=== PATIENT | female | born 1980 | race Caucasian/White ===

== ENCOUNTER 2017-03-15 18:50 | Emergency (ER) | payer BC, MEDICARE ==
[~2017-03-15 18:50] MED LIST: ISOVUE-370 76%-LOCM 1 ML ONE
[2017-03-15] MEDS ORDERED: Acetaminophen 500 MG TAB ONE ×2 (19:54→19:58)
[2017-03-15 19:56] LABS: #Eosinphils 0.1 thou/uL (0.0-0.7); #Lymphocytes 0.7 thou/uL (1.20-3.40); #Monocytes 0.6 thou/uL (0.11-0.59); %Basophils 0.2 % (0.0-1.0); %Eosinophils 1.8 % (0.0-10.0); %Lymphocytes 16.3 % (21.0-51.0); %Monocytes 13.9 % (0.0-10.0); Hematocrit 38.5 % (36.0-47.0); Mean Platelet Volume 7.5 fL (7.4-10.4); Red Blood Cell (RBC) Count 3.91 mill/uL (4.20-5.40); White Blood Cell (WBC) Count 4.4 thou/uL (4.8-10.8)
[2017-03-15 20:11] LABS: Bilirubin Negative (Negative); Blood, Urine Negative (Negative); Glucose, Urine (Dipstick) Negative (Negative); Ketone, Urine 40 mg/dL (Negative); Nitrite Negative (Negative); Protein, Urine (Dipstick) Trace mg/dL (Neg-Trace); Urobilinogen 0.2 mg/dL (0.2-1.0)
[2017-03-15 20:11] LABS: Lactic Acid - Sepsis 1.2 mmol/L (0.5-2.2)
[2017-03-15 20:13] LABS: Bacteria/HPF None Seen HPF (None Seen); Hyaline Casts/LPF 0-3 HYALINE CAST LPF (0-3 Hyaline); RBC/HPF 0-3 HPF (0-3); Squamous Epithelial 0-3 HPF (0-3)
[2017-03-15 20:15] LABS: ALT (SGPT) 14 U/L (8-55); AST (SGOT) 25 U/L (5-34); Alkaline Phosphatase 80 U/L (40-150); Anion Gap 16 mmol/L (10-20); BUN (Urea Nitrogen) 9 mg/dL (7.0-18.7); Bilirubin, Total 0.8 mg/dL (0.2-1.2); Calc. Creatinine Clearance 0 mL/min (70-130); Calcium 9.1 mg/dL (7.8-10.44); Carbon Dioxide 25 mmol/L (22-29); Chloride 102 mmol/L (98-107); Estimated GFR-MDRD 64; Globulin 3.2 g/dL (2.4-3.5); Protein, Total 7.7 g/dL (6.0-8.3)
[2017-03-15 20:32] LABS: Magnesium 1.7 mg/dL (1.6-2.6)
[2017-03-15 20:37] LABS: Troponin I Less than 0.010 ng/mL (< 0.028)
[2017-03-15] MEDS ORDERED: Piperacillin/Tazobactam 3.375 GM in Sodium Chloride 0.9% 100 ML IVPB SCH (20:45)
--- NOTE | 2017-03-15 20:46 | RAD ---
CHEST ONE VIEW 03/15/17 HISTORY: Cough. COMPARISON: 08/27/15 FINDINGS: The cardiac silhouette is magnified by projection. Pulmonary vasculature is unremarkable. Mediastinum is midline. There is no lobar consolidation or evidence of pneumothorax. IMPRESSION: No active cardiopulmonary abnormalities are demonstrated. POS: [facility]
--- NOTE | 2017-03-15 21:46 | CT ---
CT ABDOMEN AND PELVIS WITH IV CONTRAST 03/15/17 HISTORY: Abdomen pain. COMPARISON: 02/06/14 FINDINGS: The lung bases are clear. Calcified granulomata within the spleen are consistent with healed granulom atous disease. The liver, kidneys, adrenal glands and pancreas have a normal CT appearance. No enlarg ed lymph nodes or free fluid are apparent. Pelvis is partially obscured by bilateral hip prosthesis. Ligation clips are present at each adnexa. Urinary bladder shows no focal abnormalities. IMPRESSION: No significant abnormalities are demonstrated. POS: [facility]
[2017-03-15] MEDS ORDERED: Ibuprofen 800 MG TAB ONE (21:53)
[2017-03-15] MEDS ORDERED: Potassium Chloride 20 MEQ TAB ONE (23:33)
--- NOTE | 2017-04-22 11:22 | EKG ---
Test Reason : SEPSIS ALERT Blood Pressure : / mmHG Vent. Rate : 107 BPM Atrial Rate : 107 BPM P-R Int : 122 ms QRS Dur : 074 ms QT Int : 300 ms P-R-T Axes : 048 -09 -67 degrees QTc Int : 400 ms Sinus tachycardia T wave abnormality, consider inferolateral ischemia Abnormal ECG Confirmed by LINCOLN MELGAR M.D. ([id number]), video tape editor TANVI ZAVALA ([id number]) on 04/22/2017 11:21:54 AM Referred By: Confirmed By:LINCOLN MELGAR M.D.
== END 2017-03-15 23:43 | disposition home or self-care (01) ==
LOC: ERS 18:50
DX: J10.1 Influenza due to other identified influenza virus with other respiratory manifestations (principal); E87.6 Hypokalemia; N39.0 Urinary tract infection, site not specified; I10 Essential (primary) hypertension
CPT/HCPCS: 36415; 71010; 74177; 80053; 81003; 81015; 82553; 83605; 83690; 83735; 84484; 85025; 87040; 87086; 93005; 93010; 96361; 96365; J2543; J7050

== ENCOUNTER 2018-04-05 15:56 | Emergency (ER) | payer BC, MEDICARE ==
[2018-04-05] MEDS ORDERED: Ketorolac Tromethamine 30 MG/ML VIAL ONE (16:28)
--- NOTE | 2018-04-05 16:58 | RAD ---
PORTABLE SUPINE AP PELVIS: History: Fall with injury to pelvis. FINDINGS: There are bilateral hip prostheses. The components appear in adequate position and alignment. No acut e fracture identified. IMPRESSION: No evidence of acute fracture. POS: [facility]
--- NOTE | 2018-04-05 16:59 | RAD ---
LEFT KNEE FOUR VIEWS: History: Fall from horse with injury to left knee. FINDINGS: No evidence of fracture. No evidence of joint effusion. No degenerative change or other osseous abnor mality. IMPRESSION: No acute findings. POS: [facility]
== END 2018-04-05 17:07 | disposition home or self-care (01) ==
LOC: ERS 15:56
DX: S76.012A Strain of muscle, fascia and tendon of left hip, initial encounter (principal); S86.912A Strain of unspecified muscle(s) and tendon(s) at lower leg level, left leg, initial encounter; I10 Essential (primary) hypertension; Z96.643 Presence of artificial hip joint, bilateral; V80.010A Animal-rider injured by fall from or being thrown from horse in noncollision accident, initial encounter
CPT/HCPCS: 72170; 96372; J1885

== ENCOUNTER 2018-06-19 20:08 | Emergency (ER) | payer BC, MEDICARE ==
[2018-06-19 21:23] LABS: #Basophils 0.1 thou/uL (0.0-0.2); #Eosinphils 0.2 thou/uL (0.0-0.7); #Lymphocytes 1.3 thou/uL (1.20-3.40); #Monocytes 0.9 thou/uL (0.11-0.59); #Neutrophils 3.9 thou/uL (1.40-6.50); %Basophils 1.1 % (0.0-1.0); %Eosinophils 3.3 % (0.0-10.0); %Lymphocytes 20.6 % (21.0-51.0); %Monocytes 14.3 % (0.0-10.0); %Neutrophils 60.7 % (42.0-75.0); Hemoglobin 11.3 g/dL (12.0-16.0); Mean Corpuscular HGB CONC 32.8 g/dL (32.0-36.0); Mean Corpuscular Hemoglobin 31.5 pg (27.0-31.0); Mean Corpuscular Volume 96.1 fL (78.0-98.0); Mean Platelet Volume 7.1 fL (7.4-10.4); Platelet Count 167 thou/uL (130-400); RBC Distribution Width 17.6 % (11.5-14.5); Red Blood Cell (RBC) Count 3.59 mill/uL (4.20-5.40); White Blood Cell (WBC) Count 6.5 thou/uL (4.8-10.8)
--- NOTE | 2018-06-19 21:42 | RAD ---
THREE VIEWS RIGHT SHOULDER 06/19/18 HISTORY: Recent right shoulder surgery. Pain. AP internally, externally and scapular Y-views right shoulder obtained. Three views right shoulder demonstrates a right shoulder arthroplasty. The humeral component is in good position. No evidence of definite fracture or loosening seen. The right clavicle and scapula are unremarkable. IMPRESSION: Right shoulder arthroplasty. No acute abnormality seen. POS: [facility]
--- NOTE | 2018-06-19 21:45 | RAD ---
TWO VIEWS RIGHT FOREARM 06/19/18 HISTORY: Right forearm pain, swelling. Lateral and minimally oblique lateral view right forearm obtained. A true AP view is not obtained. If there is concern for right forearm pathology, dedicated AP and lateral views of the right forearm is recommended. AP view was not obtained. Repeat exam is recommended. IMPRESSION: No gross evidence of abnormality seen. Dedicated AP view right forearm is recommended if there is cli nical concern for radial and ulnar pathology on plain film radiography. POS: [facility]
[2018-06-19 21:49] LABS: ALT (SGPT) 15 U/L (8-55); AST (SGOT) 39 U/L (5-34); Albumin 4.3 g/dL (3.5-5.0); Alkaline Phosphatase 93 U/L (40-150); Anion Gap 14 mmol/L (10-20); BUN (Urea Nitrogen) 9 mg/dL (7.0-18.7); Bilirubin, Total 1.2 mg/dL (0.2-1.2); Calc. Creatinine Clearance 0 mL/min (70-130); Carbon Dioxide 27 mmol/L (22-29); Chloride 101 mmol/L (98-107); Estimated GFR-MDRD 74; Globulin 2.5 g/dL (2.4-3.5); Glucose 68 mg/dL (70-105); Potassium 3.7 mmol/L (3.5-5.1); Protein, Total 6.8 g/dL (6.0-8.3); Sodium 138 mmol/L (136-145)
[2018-06-19] MEDS ORDERED: Fentanyl 100 MCG/2 ML VIAL ONE (22:03)
== END 2018-06-19 22:38 | disposition home or self-care (01) ==
LOC: ERS 20:08
DX: M79.89 Other specified soft tissue disorders (principal); I10 Essential (primary) hypertension; Z79.891 Long term (current) use of opiate analgesic; Z96.611 Presence of right artificial shoulder joint
CPT/HCPCS: 36415; 80053; 85025; 96372; J3010

== ENCOUNTER 2018-12-23 18:32 | Emergency (ER) | payer MEDICARE ==
[2018-12-23 18:59] LABS: Bacteria/HPF 2+ HPF (None Seen); Bilirubin Negative (Negative); Blood, Urine Negative (Negative); Clarity Clear (Clear); Glucose, Urine (Dipstick) Normal (Negative); Leukocyte 25 Leu/uL (Negative); Nitrite 2+ (Negative); Protein, Urine (Dipstick) 30 mg/dL (Neg-Trace); Squamous Epithelial None Seen HPF (0-3); Urobilinogen Normal mg/dL (Less than 2); WBC/HPF 21-50 HPF (0-3)
[2018-12-23] MEDS ORDERED: cefTRIAXone\\ROCEPHIN 250 MG VIAL ONE (20:26)
[2018-12-23] MEDS ORDERED: Azithromycin 250 MG TAB ONE (20:26)
[2018-12-24 18:34] LABS: Chlamydia by PCR Not Detected (NotDetected); GC by PCR Not Detected (NotDetected)
== END 2018-12-23 22:21 | disposition home or self-care (01) ==
LOC: ERS 18:32
DX: N39.0 Urinary tract infection, site not specified (principal); I10 Essential (primary) hypertension
CPT/HCPCS: 81003; 81015; 87480; 87491; 87510; 87591; 87660; 96372; 99283; J0696

== ENCOUNTER 2020-03-10 12:36 | Emergency (ER) | payer OTHER ==
[2020-03-10 14:36] LABS: #Basophils 0.1 thou/uL (0.0-0.2); #Eosinphils 0.2 thou/uL (0.0-0.7); #Lymphocytes 1.2 thou/uL (1.20-3.40); #Monocytes 0.6 thou/uL (0.11-0.59); %Eosinophils 3.2 % (0.0-10.0); %Lymphocytes 23.7 % (21.0-51.0); %Monocytes 11.4 % (0.0-10.0); %Neutrophils 60.7 % (42.0-75.0); Hemoglobin 10.8 g/dL (12.0-16.0); Mean Corpuscular HGB CONC 33.7 g/dL (32.0-36.0); Mean Corpuscular Hemoglobin 32.4 pg (27.0-31.0); Mean Corpuscular Volume 96.3 fL (78.0-98.0); Mean Platelet Volume 7.2 fL (7.4-10.4); Platelet Count 161 thou/uL (130-400); RBC Distribution Width 13.2 % (11.5-14.5); Red Blood Cell (RBC) Count 3.34 mill/uL (4.20-5.40); White Blood Cell (WBC) Count 4.9 thou/uL (4.8-10.8)
[2020-03-10 14:37] LABS: Albumin 4.6 g/dL (3.5-5.0)
[2020-03-10 14:38] LABS: Calcium 9.2 mg/dL (7.8-10.44); Chloride 101 mmol/L (98-107); Globulin 3.5 g/dL (2.4-3.5); Glucose 84 mg/dL (70-105); Potassium 4.2 mmol/L (3.5-5.1); Protein, Total 8.1 g/dL (6.0-8.3); Sodium 138 mmol/L (136-145)
[2020-03-10 14:39] LABS: Alkaline Phosphatase 55 U/L (40-110); Anion Gap 13 mmol/L (10-20); Bilirubin, Total 0.6 mg/dL (0.2-1.2); Calc. Creatinine Clearance 0 mL/min (70-130); Carbon Dioxide 28 mmol/L (22-29); Estimated GFR-MDRD 48
[2020-03-10 14:40] LABS: ALT (SGPT) 8 U/L (8-55); AST (SGOT) 28 U/L (5-34); BUN (Urea Nitrogen) 18 mg/dL (7.0-18.7)
[2020-03-10 16:40] LABS: Bilirubin Negative (Negative); Blood, Urine Trace (Negative); Clarity Turbid (Clear); Glucose, Urine (Dipstick) Normal (Negative); Ketone, Urine Negative (Negative); Leukocyte 250 Leu/uL (Negative); Nitrite 2+ (Negative); Protein, Urine (Dipstick) 10 mg/dL (Neg-Trace); RBC/HPF 0-3 HPF (0-3); Specific Gravity, Urine 1.022 (1.002-1.036); Squamous Epithelial 0-3 HPF (0-3); Urobilinogen Normal mg/dL (Less than 2); WBC/HPF 21-50 HPF (0-3)
[2020-03-10 16:41] LABS: Bacteria/HPF 1+ HPF (None Seen)
[2020-03-10] MEDS ORDERED: Lidocaine Viscous Sol 2% 15 ml UD Cup ONE (20:15)
[2020-03-10] MEDS ORDERED: Cephalexin 250 MG CAP ONE (20:15)
[2020-03-10] MEDS ORDERED: Mag-Al 1200 mg/1200 mg/30 ML UDCUP ONE ×2 (20:15→20:17)
[2020-03-10] MEDS ORDERED: Ondansetron ODT 4 MG TAB ONE (20:15)
[2020-03-10] MEDS ORDERED: Dextrose 50% Abboject 50 ML SYRINGE ONE (22:42)
[2020-03-11 03:29] LABS: SARS-CoV-2 MS2 Positive; SARS-CoV-2 N Gene Positive; SARS-CoV-2 S Gene Positive; SARS-CoV-2 by NAA DETECTED (NotDetected); SARS-CoV-2 orf1ab Positive
== END 2020-03-10 20:30 | disposition home or self-care (01) ==
LOC: ERS 12:36
DX: U07.1 COVID-19 (principal); N39.0 Urinary tract infection, site not specified; R19.7 Diarrhea, unspecified
CPT/HCPCS: 36415; 80053; 81003; 81015; 83690; 85025; 87635; 99284; Q0162; U0003

== ENCOUNTER 2025-03-07 20:08 | Emergency (ER) | payer MEDICARE, SELFPAY | END 2025-03-08 00:30 | disposition home or self-care (01) | LOC: ERS 20:08 | DX: S80.01XA Contusion of right knee, initial encounter (principal); S60.211A Contusion of right wrist, initial encounter; W01.0XXA Fall on same level from slipping, tripping and stumbling without subsequent striking against object, initial encounter | CPT/HCPCS: 99283 ==

== ENCOUNTER 2025-03-17 23:57 | Emergency (ER) | payer MEDICARE, BC | END 2025-03-18 03:01 | disposition home or self-care (01) | LOC: ERS 23:57 | DX: M25.551 Pain in right hip (principal); K21.9 Gastro-esophageal reflux disease without esophagitis; J45.909 Unspecified asthma, uncomplicated; W19.XXXA Unspecified fall, initial encounter; Z79.899 Other long term (current) drug therapy; T84.030A Mechanical loosening of internal right hip prosthetic joint, initial encounter; I25.2 Old myocardial infarction; Z79.51 Long term (current) use of inhaled steroids | CPT/HCPCS: 96374; 99283; J2270; 80053; 85025; 96375; 96376; J1171 ==